=== PATIENT | female | born 1965 | race Caucasian/White ===

== ENCOUNTER 2021-06-14 04:55 | Inpatient (IN) | payer OTHER ==
[~2021-06-14] VITALS: Ht 157.5 cm; Wt 130.6 kg
[~2021-06-14 04:55] MED LIST: AMOXICILLIN500 MG PO; BIAXIN500 MG PO; CLARITIN10 MG PO; COMBIVENT1 ARO IH; DAYPRO600 M1 PO; MEDROL DOSEPAK4 MG PO; METFORMIN500 MG PO; PRAVASTATIN SOD10 MG PO; ROBAXIN750 MG PO; VICODIN 500 MG-1 TAB PO; WATER PILL
[2021-06-14 05:09] VITALS: BP 187/90
[2021-06-14 06:13] LABS: BASO % 0.2 % (0.0-1.0); EOS # 0.1 10*3/uL (0.0-0.4); EOS % 0.6 % (1.0-4.0); HEMATOCRIT 37.5 % (37.0-47.0); LYMPH # 1.9 10*3/uL (1.3-4.4); LYMPH % 21.2 % (27.0-41.0); MEAN CELL VOLUME 86.4 fl (81.0-99.0); MEAN CORPUSCULAR HGB 27.4 pg (27.0-31.0); MEAN CORPUSCULAR HGB CONC 31.7 g/dl (33.0-37.0); MEAN PLATELET VOLUME 10.2 fl (9.6-12.3); MONO # 0.5 10*3/uL (0.1-1.0); MONO % 5.9 % (3.0-9.0); NEUT # 6.4 10*3/uL (2.3-7.9); NEUT % 71.7 % (47.0-73.0); PLATELET COUNT AUTOMATED 373 10*3/uL (130-400); RED BLOOD COUNT 4.34 10*6/uL (4.10-5.10); RED CELL DISTRI WIDTH 13.9 % (0-14.5); WHITE BLOOD COUNT 8.9 10*3/uL (4.8-10.8)
[2021-06-14 06:25] LABS: ALBUMIN 3.5 gm/dl (3.1-4.5); ALKALINE PHOSPHATASE 50 U/L (45-117); BUN 9 mg/dl (7-24); CHLORIDE 106 mmol/L (98-107); CREATININE 0.44 mg/dL (0.55-1.02); POTASSIUM 4.1 mmol/L (3.5-5.1); SGOT/AST 25 IU/L (3-35); SGPT/ALT 50 U/L (12-78); SODIUM 138 mmol/L (136-145)
[2021-06-14 07:34] VITALS: BP 136/69
[2021-06-14 11:39] VITALS: BP 124/76
[2021-06-14 15:41] VITALS: BP 148/86
[2021-06-14] MEDS ORDERED: ASPIRIN ADULT L81 M1 PO (17:21)
[2021-06-14] MEDS ORDERED: METFORMIN HYD1000 MG PO (17:22)
[2021-06-14] MEDS ORDERED: LIPITOR40 MG PO (17:22)
[2021-06-14] MEDS ORDERED: LISINOPRIL5 MG PO (17:23)
[2021-06-14] MEDS ORDERED: NITROSTAT0.4 MG SL (17:24)
[2021-06-14] MEDS ORDERED: SPIRONOLACTONE50 M1 PO (17:24)
[2021-06-14] MEDS ORDERED: PEPCID20 MG PO (17:25)
[2021-06-14] MEDS ORDERED: CYMBALTA60 MG PO (17:26)
[2021-06-14] MEDS ORDERED: BUSPIRONE10 MG PO (17:26)
[2021-06-14] MEDS ORDERED: BASAG SOL SC (17:27)
[2021-06-14] MEDS ORDERED: COLACE100 MG PO (17:27)
[2021-06-14 20:00] VITALS: BP 151/89
[2021-06-14] MEDS ORDERED: VITAMIN D3125 MC1 PO (22:10)
[2021-06-14] MEDS ORDERED: METOPROLOL SUCC25 M2 PO (22:11)
[2021-06-14] MEDS ORDERED: B12 ACTIVE1000 MCG PO (22:16)
[2021-06-14] MEDS ORDERED: INSULIN LI100 UNIT/2 SQ (22:17)
[2021-06-15] VITALS: BP 153/80
[2021-06-15 06:07] LABS: BASO % 0.4 % (0.0-1.0); EOS % 0.6 % (1.0-4.0); HEMATOCRIT 39.2 % (37.0-47.0); LYMPH # 1.5 10*3/uL (1.3-4.4); LYMPH % 20.6 % (27.0-41.0); MEAN CELL VOLUME 84.8 fl (81.0-99.0); MEAN CORPUSCULAR HGB 27.3 pg (27.0-31.0); MEAN CORPUSCULAR HGB CONC 32.1 g/dl (33.0-37.0); MEAN PLATELET VOLUME 10.3 fl (9.6-12.3); MONO # 0.5 10*3/uL (0.1-1.0); MONO % 7.2 % (3.0-9.0); NEUT # 5.1 10*3/uL (2.3-7.9); NEUT % 70.9 % (47.0-73.0); PLATELET COUNT AUTOMATED 377 10*3/uL (130-400); RED BLOOD COUNT 4.62 10*6/uL (4.10-5.10); RED CELL DISTRI WIDTH 14.4 % (0-14.5); WHITE BLOOD COUNT 7.2 10*3/uL (4.8-10.8)
[2021-06-15 06:32] LABS: ALBUMIN 3.4 gm/dl (3.1-4.5); BUN 8 mg/dl (7-24); CHLORIDE 101 mmol/L (98-107); CHOLESTEROL 123 mg/dL (<200); CREATININE 0.48 mg/dL (0.55-1.02); POTASSIUM 4.1 mmol/L (3.5-5.1); SGOT/AST 35 IU/L (3-35); SGPT/ALT 56 U/L (12-78); SODIUM 138 mmol/L (136-145); TRIGLYCERIDES 190 mg/dl (<150)
[2021-06-15 06:35] LABS: ALKALINE PHOSPHATASE 51 U/L (45-117); FREE T4 1.19 ng/dl (0.76-1.46); LDL CHOLESTEROL 57 mg/dL (9-159)
[2021-06-15 08:00] VITALS: BP 146/78
[2021-06-15 09:27] LABS: VITAMIN D, 25-HYDROXY 83.4 ng/mL (30-100)
== END 2021-06-15 13:03 | disposition home or self-care (01) | DRG 198 ==
LOC: ED 04:55 → EDHOLD 11:54 → 5E 11:54
PROVIDERS: Emergency Medicine; Registered Nurse; ADMIT Student in an Organized Health Care Education/Training Program; ATTEND Student in an Organized Health Care Education/Training Program
DX: R07.89 Other chest pain (principal); E78.2 Mixed hyperlipidemia; I10 Essential (primary) hypertension; I25.10 Atherosclerotic heart disease of native coronary artery without angina pectoris; E11.65 Type 2 diabetes mellitus with hyperglycemia; E53.8 Deficiency of other specified B group vitamins; E66.01 Morbid (severe) obesity due to excess calories; F32.9 Major depressive disorder, single episode, unspecified; J44.9 Chronic obstructive pulmonary disease, unspecified; G47.33 Obstructive sleep apnea (adult) (pediatric); Z79.4 Long term (current) use of insulin; Z86.16 Personal history of COVID-19; Z95.5 Presence of coronary angioplasty implant and graft; Z88.1 Allergy status to other antibiotic agents; Z98.891 History of uterine scar from previous surgery; Z82.49 Family history of ischemic heart disease and other diseases of the circulatory system; Z80.1 Family history of malignant neoplasm of trachea, bronchus and lung; Z68.43 Body mass index [BMI] 50.0-59.9, adult; R65.10 Systemic inflammatory response syndrome (SIRS) of non-infectious origin without acute organ dysfunction

== ENCOUNTER 2021-11-20 08:15 | Inpatient (IN) | payer OTHER ==
[~2021-11-20] VITALS: Ht 157.4 cm; Wt 136.7 kg
[~2021-11-20 08:15] MED LIST changes: +ASPIRIN ADULT L81 M1 PO; +B12 ACTIVE1000 MCG PO; +BASAG SOL SC; +BUSPIRONE10 MG PO; +COLACE100 MG PO; +CYMBALTA60 MG PO; +INSULIN LI100 UNIT/2 SQ; +LIPITOR40 MG PO; +LISINOPRIL5 MG PO; +METFORMIN HYD1000 MG PO; +METOPROLOL SUCC25 M2 PO; +NITROSTAT0.4 MG SL; +PEPCID20 MG PO; +SPIRONOLACTONE50 M1 PO; +VITAMIN D3125 MC1 PO
[2021-11-20 08:22] VITALS: BP 114/57
[2021-11-20 12:38] LABS: BASO % 0.3 % (0.0-1.0); EOS # 0.1 10*3/uL (0.0-0.4); EOS % 0.4 % (1.0-4.0); HEMATOCRIT 42.3 % (37.0-47.0); LYMPH # 2.3 10*3/uL (1.3-4.4); LYMPH % 18.1 % (27.0-41.0); MEAN CELL VOLUME 86.5 fl (81.0-99.0); MEAN CORPUSCULAR HGB 28.4 pg (27.0-31.0); MEAN CORPUSCULAR HGB CONC 32.9 g/dl (33.0-37.0); MEAN PLATELET VOLUME 10.9 fl (9.6-12.3); MONO # 0.8 10*3/uL (0.1-1.0); NEUT # 9.7 10*3/uL (2.3-7.9); NEUT % 74.8 % (47.0-73.0); PLATELET COUNT AUTOMATED 244 10*3/uL (130-400); RED BLOOD COUNT 4.89 10*6/uL (4.10-5.10); RED CELL DISTRI WIDTH 13.5 % (0-14.5); WHITE BLOOD COUNT 12.9 10*3/uL (4.8-10.8)
[2021-11-20] MEDS ORDERED: ULTRAM50 MG PO (12:52)
[2021-11-20 12:53] LABS: BUN 11 mg/dl (7-24); CHLORIDE 106 mmol/L (98-107); CREATININE 0.57 mg/dL (0.55-1.02); POTASSIUM 4.1 mmol/L (3.5-5.1); SODIUM 136 mmol/L (136-145)
[2021-11-20] MEDS ORDERED: ASPIRIN ADULT L81 M2 PO (13:50)
[2021-11-20] MEDS ORDERED: LOPRESSOR50 M1 PO (13:55)
[2021-11-20] MEDS ORDERED: LANTUS SOL100 UNIT/1 SC (13:57)
[2021-11-20 16:00] VITALS: BP 152/81
[2021-11-20 20:00] VITALS: BP 130/75
[2021-11-21] VITALS: BP 139/84
[2021-11-21 06:17] LABS: BASO # 0.1 10*3/uL (0.0-0.1); BASO % 0.6 % (0.0-1.0); EOS # 0.1 10*3/uL (0.0-0.4); EOS % 0.8 % (1.0-4.0); LYMPH # 2.1 10*3/uL (1.3-4.4); LYMPH % 24.7 % (27.0-41.0); MEAN CELL VOLUME 86.9 fl (81.0-99.0); MEAN CORPUSCULAR HGB 27.7 pg (27.0-31.0); MEAN CORPUSCULAR HGB CONC 31.9 g/dl (33.0-37.0); MEAN PLATELET VOLUME 10.6 fl (9.6-12.3); MONO # 0.8 10*3/uL (0.1-1.0); MONO % 9.1 % (3.0-9.0); NEUT # 5.5 10*3/uL (2.3-7.9); NEUT % 64.6 % (47.0-73.0); PLATELET COUNT AUTOMATED 248 10*3/uL (130-400); RED BLOOD COUNT 4.95 10*6/uL (4.10-5.10); RED CELL DISTRI WIDTH 13.7 % (0-14.5); WHITE BLOOD COUNT 8.5 10*3/uL (4.8-10.8)
[2021-11-21 06:25] LABS: ALBUMIN 3.4 gm/dl (3.1-4.5); ALKALINE PHOSPHATASE 65 U/L (45-117); BUN 7 mg/dl (7-24); CHLORIDE 107 mmol/L (98-107); CREATININE 0.52 mg/dL (0.55-1.02); POTASSIUM 4.2 mmol/L (3.5-5.1); SGOT/AST 25 IU/L (3-35); SGPT/ALT 48 U/L (12-78); SODIUM 137 mmol/L (136-145); TOTAL PROTEIN 7.1 gm/dL (6.4-8.2)
[2021-11-21 08:00] VITALS: BP 170/97
[2021-11-21] MEDS ORDERED: LISINOPRIL5 MG PO (09:13)
[2021-11-21 12:00] VITALS: BP 154/80
[2021-11-21 16:00] VITALS: BP 158/88
[2021-11-21 20:00] VITALS: BP 154/77
[2021-11-22] VITALS: BP 125/76
[2021-11-22 08:00] VITALS: BP 159/76
[2021-11-22 12:00] VITALS: BP 117/56
[2021-11-22 16:40] VITALS: BP 111/57
[2021-11-22 20:00] VITALS: BP 118/66
[2021-11-23] VITALS: BP 103/56
[2021-11-23 08:00] VITALS: BP 112/72
[2021-11-23 12:00] VITALS: BP 108/78
[2021-11-23 16:00] VITALS: BP 116/64
[2021-11-23 20:00] VITALS: BP 122/98
[2021-11-24] VITALS: BP 127/82
[2021-11-24 06:12] LABS: CREATININE 0.55 mg/dL (0.55-1.02)
[2021-11-24 06:38] LABS: BASO # 0.1 10*3/uL (0.0-0.1); BASO % 0.6 % (0.0-1.0); EOS # 0.1 10*3/uL (0.0-0.4); EOS % 0.9 % (1.0-4.0); HEMATOCRIT 42.4 % (37.0-47.0); LYMPH # 2.3 10*3/uL (1.3-4.4); LYMPH % 29.2 % (27.0-41.0); MEAN CELL VOLUME 87.8 fl (81.0-99.0); MEAN CORPUSCULAR HGB 28.4 pg (27.0-31.0); MEAN CORPUSCULAR HGB CONC 32.3 g/dl (33.0-37.0); MEAN PLATELET VOLUME 11.4 fl (9.6-12.3); MONO # 0.5 10*3/uL (0.1-1.0); MONO % 6.9 % (3.0-9.0); NEUT # 4.8 10*3/uL (2.3-7.9); NEUT % 62.3 % (47.0-73.0); PLATELET COUNT AUTOMATED 274 10*3/uL (130-400); RED BLOOD COUNT 4.83 10*6/uL (4.10-5.10); RED CELL DISTRI WIDTH 13.2 % (0-14.5); WHITE BLOOD COUNT 7.8 10*3/uL (4.8-10.8)
[2021-11-24 08:00] VITALS: BP 118/72
[2021-11-24 12:00] VITALS: BP 135/80
[2021-11-24] MEDS ORDERED: Humalog SQ (13:54)
[2021-11-24] MEDS ORDERED: Percocet 325 MG1 TAB PO (13:54)
[2021-11-24 16:00] VITALS: BP 137/64
== END 2021-11-24 16:54 | DRG 342 ==
LOC: ED 08:15 → EDHOLD 13:49 → 4E 13:49
PROVIDERS: Emergency Medicine; Student in an Organized Health Care Education/Training Program; ADMIT Student in an Organized Health Care Education/Training Program; ATTEND Student in an Organized Health Care Education/Training Program
DX: S82.131A Displaced fracture of medial condyle of right tibia, initial encounter for closed fracture (principal); S99.911A Unspecified injury of right ankle, initial encounter; Z20.822 Contact with and (suspected) exposure to COVID-19; W00.9XXA Unspecified fall due to ice and snow, initial encounter; R26.2 Difficulty in walking, not elsewhere classified; E11.65 Type 2 diabetes mellitus with hyperglycemia; M17.11 Unilateral primary osteoarthritis, right knee; M19.071 Primary osteoarthritis, right ankle and foot; E66.01 Morbid (severe) obesity due to excess calories; G47.33 Obstructive sleep apnea (adult) (pediatric); E78.5 Hyperlipidemia, unspecified; I10 Essential (primary) hypertension; I25.10 Atherosclerotic heart disease of native coronary artery without angina pectoris; Y93.29 Activity, other involving ice and snow; Y92.89 Other specified places as the place of occurrence of the external cause; Y99.8 Other external cause status; Z79.4 Long term (current) use of insulin; Z79.82 Long term (current) use of aspirin; Z79.899 Other long term (current) drug therapy; Z82.49 Family history of ischemic heart disease and other diseases of the circulatory system; Z80.1 Family history of malignant neoplasm of trachea, bronchus and lung

== ENCOUNTER 2025-10-15 11:05 | Emergency (ER) | payer OTHER ==
[~2025-10-15] VITALS: Ht 157.4 cm; Wt 126.1 kg
[~2025-10-15 11:05] MED LIST changes: +ASPIRIN ADULT L81 M2 PO; +Humalog SQ; +LANTUS SOL100 UNIT/1 SC; +LOPRESSOR50 M1 PO; +Percocet 325 MG1 TAB PO; +ULTRAM50 MG PO
[2025-10-15] MEDS ORDERED: VENT7GM INH (12:50)
[2025-10-15] MEDS ORDERED: AMOXICILLIN500 M2 PO (12:50)
== END 2025-10-15 12:54 | disposition home or self-care (01) ==
LOC: ED 11:05
DX: J01.10 Acute frontal sinusitis, unspecified (principal); E11.9 Type 2 diabetes mellitus without complications; Z90.89 Acquired absence of other organs; Z98.890 Other specified postprocedural states; Z88.8 Allergy status to other drugs, medicaments and biological substances